=== PATIENT | male | born 1980 | race American Indian/Alaskan Native ===

== ENCOUNTER 2023-05-02 03:09 | Emergency (ER) | payer OTHER ==
[2023-05-02] MEDS ORDERED: Tetracaine HCl/PF 0.5% 4 ML Bottle EYEBOTH ONE (03:20)
[2023-05-02] MEDS: Acetaminophen/HYDROcodone 325-5 MG Tab PO ONE ×2 (03:38→03:43)
[2023-05-02] MEDS: Ondansetron 4 MG Tab.DIS PO ONE ×2 (03:38→03:43)
[2023-05-02] MEDS ORDERED: Erythromycin Base 0.5% Ophth Oint 1 GM Tube EYEBOTH ONE (04:40)
== END 2023-05-02 05:00 | disposition home or self-care (01) ==
LOC: MW.ED 03:09
DX: T15.91XA Foreign body on external eye, part unspecified, right eye, initial encounter (principal); T15.92XA Foreign body on external eye, part unspecified, left eye, initial encounter; H16.9 Unspecified keratitis
CPT/HCPCS: 99283; A9270; J3490